=== PATIENT | male | born 1960 | race Caucasian/White ===

== ENCOUNTER 2022-06-20 05:59 | Day surgery (SDC) | payer BC ==
[~2022-06-20] VITALS: Ht 177.8 cm; Wt 112.5 kg
[2022-06-20] MEDS ORDERED: TOPROL XL 25MG25 MG PO (06:38)
[2022-06-20] MEDS ORDERED: SARAFEM10 M1 PO (06:39)
[2022-06-20] MEDS ORDERED: PROZAC 20MG20 MG PO (06:40)
[2022-06-20] MEDS ORDERED: LOVAZA1 GM PO (06:41)
[2022-06-20] MEDS ORDERED: ZOCOR 20MG20 MG PO (06:41)
[2022-06-20 06:43] LABS: INR 2.9 (0.8-3.0); PROTHROMBIN TIME 34.1 SECONDS (9.7-12.8)
[2022-06-20] MEDS ORDERED: COUMADIN 22.5 MG/TAB PO ×2 (06:43→06:44)
[2022-06-20] MEDS ORDERED: PRIL40 PO (06:45)
[2022-06-20 06:59] VITALS: BP 122/61; PULSE 72; TEMP 96.2
[2022-06-20 07:45] VITALS: BP 105/59; PULSE 64; TEMP 96.6
[2022-06-20 08:00] VITALS: BP 118/59; PULSE 56
[2022-06-20 08:15] VITALS: BP 141/52; TEMP 52
[2022-06-20 08:45] VITALS: BP 135/55; PULSE 52
--- NOTE | 2022-06-20 09:00 | NUR ---
0745 RETURNS TO ROOM 3. DROWSY, BUT AROUSES EASILY. STANDS AT EDGE OF CART THEN AMBULATES TO RECLINER WITH STAND BY ASSIST. PATIENT REPORTS MILD GAS DISCOMFORT. DENIES NAUSEA. RESP UNLABORED. ABD SOFT. 0750 DR. WILKS HERE TO VISIT WITH PATIENT AND . 0810 TOLERATES PO JUICE WITHOUT NAUSEA. REFUSES SNACK. 0830 AWAKE, ALERT. DENIES PAIN OR NAUSEA. 0850 DISCHARGE INSTRUCTIONS REVIEWED. PATIENT AND VERBALIZE UNDERSTANDING. WHEN ASKED ABOUT GAS PAIN, PATIENT STATES " I REALLY HAVEN'T HAD ANY PAIN". 0905 DRESSES SELF. IN ROOM
== END 2022-06-20 09:10 | disposition home or self-care (01) ==
LOC: SDCO 05:59
PROVIDERS: Internal Medicine Gastroenterology
DX: D12.5 Benign neoplasm of sigmoid colon (principal); K64.0 First degree hemorrhoids; K29.51 Unspecified chronic gastritis with bleeding; Q39.8 Other congenital malformations of esophagus; K21.00 Gastro-esophageal reflux disease with esophagitis, without bleeding; Z86.16 Personal history of COVID-19
CPT/HCPCS: J2704; J7120